=== PATIENT | female | born 1970 | race Hispanic/Latino ===

== ENCOUNTER → 2017-09-19 | Outpatient (CLI) | payer OTHER ==
--- NOTE | 2017-09-19 17:52 | Diagnostic Imaging Report ---
PROCEDURE:X-RAY ABDOMEN - KUB COMPARISON:None. INDICATIONS:KIDNEY STONE CHECK UP FINDINGS: No dilated loops of bowel or abnormal air-fluid levels patterns. Moderate stool is seen in the rectum. Visualized portions of the lung bases are clear. No definite calcifications are seen overlying the urinary system. There are multiple phleboliths in the left hemipelvis. Five non-rib bearing lumbar type vertebral bodies identified. CONCLUSION: No radiopaque renal or ureteral stones are identified. Dictated by: Rafy Godfrey M.D. on 09/19/2017 at 18:02 Electronically approved by: Rafy Godfrey M.D. on 09/19/2017 at 18:02
== END ==
LOC: RAD 16:30
PROVIDERS: ATTEND Urology
DX: N20.0 Calculus of kidney (principal)
CPT/HCPCS: 74018

== ENCOUNTER → 2018-01-19 | Outpatient (CLI) | payer OTHER ==
--- NOTE | 2018-01-19 17:37 | Diagnostic Imaging Report ---
PROCEDURE:X-RAY ABDOMEN - KUB COMPARISON:[facility], DX, ABDOMEN-1VIEW (KUB), 09/19/2017, 17:10. INDICATIONS:CALCULUS OF KIDNEY, CYST OF KIDNEY FINDINGS: Nonobstructive bowel gas pattern. No radiopaque densities project over the renal shadows or expected course of ureters or bladder. Stable left pelvic phleboliths. No acute bony abnormalities. Cholecystectomy clips. CONCLUSION: No radiopaque densities project over the genitourinary system. Forrest Rosas M.D. Dictated by: Forrest Rosas M.D. on 01/19/2018 at 17:39 Electronically approved by: Forrest Rosas M.D. on 01/19/2018 at 17:39
== END ==
LOC: RAD 16:26
PROVIDERS: ATTEND Urology
DX: N20.0 Calculus of kidney (principal); N28.1 Cyst of kidney, acquired
CPT/HCPCS: 74018; 81025

== ENCOUNTER 2018-07-18 11:23 | Emergency (ER) | payer OTHER ==
[~2018-07-18] VITALS: Ht 165.1 cm; Wt 105.7 kg
--- OUTSIDE RECORDS SUMMARY | 2018-07-18 11:26 | XMS REPORT | Continuity of Care Document ---
Author Author [facility] Interface Address Unknown Phone Unavailable Problems Problem Status Onset Date Classification Date Reported Comments Source Cough 04/29/2018 Diagnosis 04/29/2018 [facility] Acute sinusitis 04/29/2018 Diagnosis 04/29/2018 [facility] Body mass index 30+ - obesity 04/29/2018 Diagnosis 04/29/2018 [facility] Amygdalolith 04/02/2018 Diagnosis 04/29/2018 [facility] Acute pharyngitis 04/02/2018 Diagnosis 04/29/2018 [facility] Posterior rhinorrhea 04/02/2018 Diagnosis 04/29/2018 [facility] Urinary tract infectious disease 02/01/2018 Diagnosis 02/01/2018 [facility] Body Mass Index 30+ - Obesity 02/01/2018 Problem 04/29/2018 [facility] Urinary Tract Infectious Disease 02/01/2018 Problem 04/02/2018 [facility] Dysfunction of eustachian tube 12/20/2017 Diagnosis 12/20/2017 [facility] Acute suppurative otitis media without spontaneous rupture of ear drum 12/20/2017 Diagnosis 12/20/2017 [facility] Nausea 11/08/2017 Diagnosis 11/08/2017 [facility] Lower respiratory tract infection 11/08/2017 Diagnosis 11/08/2017 [facility] Acute otitis media 11/08/2017 Diagnosis 11/08/2017 [facility] Influenza-like symptoms 11/08/2017 Diagnosis 11/08/2017 [facility] Pharyngitis 11/08/2017 Diagnosis 11/08/2017 [facility] Feeling feverish 09/30/2017 Diagnosis 09/30/2017 [facility] Pain in throat 09/30/2017 Diagnosis 09/30/2017 [facility] Acute Sinusitis Problem 12/20/2017 [facility] Acute Maxillary Sinusitis Problem 12/20/2017 [facility] Influenzal Acute Upper Respiratory Infection Problem 12/20/2017 [facility] Medications Medication Details Route Status Patient Instructions Ordering Provider Order Date Source retapamulin 0.01 MG/MG Topical Ointment [Altabax] Altabax 1 % topical ointment Active [facility] Parlin Thyroid Parlin Thyroid Active [facility] thyroid (JAIL) 60 MG Oral Tablet [Parlin Thyroid] Parlin Thyroid 60 mg tablet Active [facility] thyroid (JAIL) 90 MG Oral Tablet [Parlin Thyroid] Parlin Thyroid 90 mg tablet Active [facility] Amoxicillin 875 MG / Clavulanate 125 MG Oral Tablet [Augmentin] Augmentin 875 mg-125 mg tablet Take 1 tablet every 12 hours by oral route as directed for 10 days. Active [facility] Brompheniramine Maleate 0.4 MG/ML / Dextromethorphan Hydrobromide 2 MG/ML / Pseudoephedrine Hydrochloride 6 MG/ML Oral Solution bujpptppsjrsmmb-cnmqxfxqxquzhzt-DL 2 mg-30 mg-10 mg/5 mL syrup Active [facility] compound drug compound drug Active [facility] Fluticasone propionate 0.05 MG/ACTUAT Metered Dose Nasal [place] fluticasone 50 mcg/actuation nasal spray,suspension Active [facility] levocetirizine dihydrochloride 5 MG Oral Tablet levocetirizine 5 mg tablet Active [facility] montelukast 10 MG Oral Tablet montelukast 10 mg tablet Active [facility] progesterone celestina 200mg crm progesterone celestina 200mg crm APPLY 1ML(4 CLICKS) TOPICALLY EACH NIGHT Active [facility] Salicylic Acid 285 MG/ML Topical Solution [Ultrasal] UltraSal- ER 28.5 % topical film-forming solution with applicator Active [facility] Acetaminophen 300 MG / Codeine Phosphate 30 MG Oral Tablet acetaminophen 300 mg-codeine 30 mg tablet Active [facility] Azithromycin 250 MG Oral Tablet azithromycin 250 mg tablet Take 2 tabs today, then 1 tab on day 2-5 Active [facility] gabapentin 300 MG Oral Capsule gabapentin 300 mg capsule Active [facility] Medrol (Johnny) 4 mg tablets in a dose pack Medrol (Johnny) 4 mg tablets in a dose pack Take 1 dose pk by oral route as directed. Active [facility] Omeprazole 40 MG Delayed Release Oral Capsule omeprazole 40 mg capsule,delayed release Active [facility] Ondansetron 4 MG Disintegrating Oral Tablet ondansetron 4 mg disintegrating tablet Take 1 tablet every 6-8 hours by oral route as needed for 3 days. Active [facility] 200 ACTUAT Albuterol 0.09 MG/ACTUAT Metered Dose Inhaler [ProAir] ProAir HFA 90 mcg/actuation aerosol inhaler INHALE TWO (2) PUFF(S) BY MOUTH EVERY 4 HOURS NEEDED. Active [facility] benzonatate 100 MG Oral Capsule [Tessalon Perles] Tessalon Perles 100 mg capsule Take 1 capsule 3 times a day by oral route. Active [facility] Eflornithine 139 MG/ML Topical Cream [Vaniqa] Vaniqa 13.9 % topical cream APPLY TO AFFECTED AREA TWICE A DAY. Active [facility] Brompheniramine Maleate 0.4 MG/ML / Dextromethorphan Hydrobromide 2 MG/ML / Pseudoephedrine Hydrochloride 6 MG/ML Oral Solution [Bromfed DM] Bromfed DM 2 mg-30 mg-10 mg/5 mL syrup Take 10 mL every 6 hours by oral route as needed for 5 days. Active [facility] heb allergy relief tab heb allergy relief tab TAKE ONE (1) TABLET BY MOUTH EVERY MORNING. SUBSTITUTED FOR PATRICE. Active [facility] progesterone celestina 200mg/ml crm progesterone celestina 200mg/ml crm APPLY 1ML(4 CLICKS) TOPICALLY EACH NIGHT Active [facility] Lidocaine Hydrochloride 20 MG/ML Mucous Membrane Topical Solution Lidocaine Viscous 2 % mucosal solution Take 15 mL every 4-6 hours by oral route as needed for 7 days. Active [facility] NITROFURANTOIN, MACROCRYSTALS 25 MG / Nitrofurantoin, Monohydrate 75 MG Oral Capsule [Macrobid] Macrobid 100 mg capsule Take 1 capsule every 12 hours by oral route as directed for 5 days. Active [facility] Allergies, Adverse Reactions, Alerts Substance Category Reaction Severity Reaction type Status Date Reported Comments Source Droperidol Allergy to substance 05/18/2012 [facility] Immunizations Immunization Date Given Site Status Last Updated Comments Source influenza, injectable, quadrivalent 04/15/2017 completed [facility] Tdap 12/14/2011 completed [facility] Results Order Name Results Value Reference Range Date Interpretation Comments Source RESULT negative 04/29/2018 [facility] SWAB LOCATION Left and Right tonsillar pillars 04/29/2018 [facility] Bacteria identified in Unspecified specimen by Respiratory culture Bacteria identified in Unspecified specimen by Respiratory culture final report 04/06/2018 [facility] Bacteria identified in Unspecified specimen by Respiratory culture Bacteria identified in Unspecified specimen by Respiratory culture rrf 04/06/2018 [facility] RESULT negative 04/02/2018 [facility] SWAB LOCATION Left and Right tonsillar pillars 04/02/2018 [facility] Urinalysis macro (dipstick) panel - Urine COLOR : Yellow 02/01/2018 [facility] Urinalysis macro (dipstick) panel - Urine CLARITY : Cloudy 02/01/2018 [facility] Urinalysis macro (dipstick) panel - Urine LEUKOCYTES : Small 02/01/2018 [facility] Urinalysis macro (dipstick) panel - Urine NITRITES : Negative 02/01/2018 [facility] Urinalysis macro (dipstick) panel - Urine UROBILINOGEN : Normal 02/01/2018 [facility] Urinalysis macro (dipstick) panel - Urine PROTEIN : Negative 02/01/2018 [facility] Urinalysis macro (dipstick) panel - Urine pH : 5.5 02/01/2018 [facility] Urinalysis macro (dipstick) panel - Urine BLOOD : Moderate 02/01/2018 [facility] Urinalysis macro (dipstick) panel - Urine SPECIFIC GRAVITY : 1.020 02/01/2018 [facility] Urinalysis macro (dipstick) panel - Urine KETONES : Negative 02/01/2018 [facility] Urinalysis macro (dipstick) panel - Urine BILIRUBIN : Negative 02/01/2018 [facility] Urinalysis macro (dipstick) panel - Urine GLUCOSE Negative 02/01/2018 [facility] Influenza A negative 11/08/2017 [facility] Influenza B negative 11/08/2017 [facility] RESULT negative 09/30/2017 [facility] SWAB LOCATION Left and Right tonsillar pillars 09/30/2017 [facility] Influenza A negative 09/30/2017 [facility] Influenza B negative 09/30/2017 [facility] Vital Signs Vital Sign Value Date Comments Source Diastolic (mm Hg) 80 04/29/2018 [facility] Height 65.5 04/29/2018 [facility] Systolic (mm Hg) 120 04/29/2018 [facility] Weight 227 04/29/2018 [facility] Diastolic (mm Hg) 70 04/02/2018 [facility] Height 65.5 04/02/2018 [facility] Systolic (mm Hg) 120 04/02/2018 [facility] Weight 231 04/02/2018 [facility] Diastolic (mm Hg) 75 02/01/2018 [facility] Height 65.5 02/01/2018 [facility] Systolic (mm Hg) 114 02/01/2018 [facility] Weight 235 02/01/2018 [facility] Diastolic (mm Hg) 82 12/19/2017 [facility] Height 65.5 12/19/2017 [facility] Systolic (mm Hg) 121 12/19/2017 [facility] Weight 233 12/19/2017 [facility] Diastolic (mm Hg) 80 11/08/2017 [facility] Height 65.5 11/08/2017 [facility] Systolic (mm Hg) 124 11/08/2017 [facility] Weight 233 11/08/2017 [facility] Diastolic (mm Hg) 82 09/30/2017 [facility] Height 65.5 09/30/2017 [facility] Systolic (mm Hg) 110 09/30/2017 [facility] Weight 234 09/30/2017 [facility] Encounters Location Location Details Encounter Type Encounter Number Reason For Visit Attending Provider ADM Date DC Date Status Source [place] - [facility] - [id number] ADDY DoeP-C: [address] [place] [address], Ph. [id number] Tom Agudelo 09/30/2017 [facility] [place] [facility] - [id number] WeberP-C: [address] [place] [address], Ph. [id number] Clarence Gill 11/08/2017 [facility] [place] [facility] - [id number] ADDY CuevasP-C: [address] [place] [address], Ph. [id number] Clarence Gill 12/19/2017 [facility] [place] [facility] - [id number] ADDY VieiraP-C: [address], [place] [address], Ph. [id number] Desire Alvaradoroy 02/01/2018 [facility] [place] [facility] - [id number] Олег Adler, PA-C: [address], [place] [address], Ph. [id number] Олег Adler 04/02/2018 [facility] [place] [facility] - [id number] Олег Adler PABennyC: [address], [place] [address], Ph. [id number] Олег Adler 04/02/2018 [facility] [place] [facility] - [id number] Олег Adler PA-C: [address], [place] [address], Ph. [id number] Олег Adler 04/29/2018 [facility] Procedures Procedure Code Date Perfomer Comments Source Delivery [id number] [facility] Cholecystectomy [facility]
--- OUTSIDE RECORDS SUMMARY | 2018-07-18 11:26 | XMS REPORT | Encounter Summary ---
Author Organization Unknown Address [address] [place] [address] Phone [phone] Reason for Visit Medical Complaint Instructions 1. Acute sinusitis sinusitis: care instructions Augmentin 875 mg-125 mg tablet 2. Feeling feverish rapid flu (A+B) 3. Pain in throat sore throat: care instructions rapid strep group A, throat Discussion Note: None recorded. Plan of Care Patient Instructions consider a trial of flonase and zyrtec if you havent already. follow up pcp Reminders Provider Appointments None recorded. Lab Rapid Flu (A+B) 09/30/2017 [facility] Rapid Strep Group a, Throat 09/30/2017 [facility] Referral None recorded. Procedures None recorded. Surgeries None recorded. Imaging None recorded. Medications Name Start Date Altabax 1 % topical ointment [place]uta Thyroid Caputa Thyroid 60 mg tablet [place] Thyroid 90 mg tablet Augmentin 875 mg-125 mg tablet Take 1 tablet every 12 hours by oral route after meals for 7 days. kaxbhxmkjrcwkat-rnafdqogqovxinh-RH 2 mg-30 mg-10 mg/5 mL syrup compound drug fluticasone 50 mcg/actuation nasal spray,suspension Inhale 1 spray every day by intranasal route at bedtime for 14 days. levocetirizine 5 mg tablet montelukast 10 mg tablet progesterone celestina 200mg crm APPLY 1ML(4 CLICKS) TOPICALLY EACH NIGHT UltraSal-ER 28.5 % topical film-forming solution with applicator Medications Administered None recorded. Vitals Height Weight BMI Blood Pressure 5 ft 5.5 in 234 lbs 38.3 kg/m2 110/82 mm[Hg] Lab Results Date Name Specimen Result Interpretation Description Value Range Status Address Rapid Strep Group a, Throat Result negative [facility]: [address] [place] [address] Swab Location Left and Right tonsillar pillars [facility]: [address] [place] [address] Rapid Flu (A+B) Influenza a negative [facility]: [address] [place] [address] Influenza B negative [facility]: [address] [place] [address] Allergies Code Code System Name Reaction Severity Status Onset 3648 RxNorm Droperidol Active Problems Name Status Onset Date Source Acute Sinusitis Active Encounter Acute Maxillary Sinusitis Active Encounter Influenzal Acute Upper Respiratory Infection Active Encounter Procedures Date Name Performed by Delivery Information not available Cholecystectomy Information not available Vaccine List Vaccine Type influenza, injectable, quadrivalent 04/15/2017 Social History Smoking Status Never Smoker Past Encounters 09/30/2017 Acute Sinusitis; Feeling Feverish; Pain in Throat Tom Agudelo [facility]: [address] [place] [address], Ph. History of Present Illness Qwjhm-Ocoykiaqzd-Wjozfvk Reported By: Patient HPI: Location: head/sinuses, throat. Quality: sore throat, nasal/sinus congestion. Duration: 7days. Severity: moderate. Onset/Timing: gradual. Context: no sick contacts, no foreign travel, non-smoker, allergies. Modifying factors: OTC medication. Associated Symptoms: no sputum production, no shortness of breath, no wheezing, no change in number of pillows needed to sleep at night, no sweats, no significant weight gain, no significant weight loss, no morning cough, no sore throat, no vomiting, no diarrhea, no rash, no nausea, no fever, no muscle aches, no headache Review of Systems:ROS as noted in the HPI Review of Systems Basic Reported By: Patient Physical Exam Adult Basic, Adult Female Complete Reported By: Patient Constitutional: General Appearance: obese. Level of Distress: NAD. Ambulation: ambulating normally Psychiatric: Mental Status: active and alert Eyes: Lids and Conjunctivae: non-injected, no discharge Urx-Bpge-Cpvgb-Throat: Ears: no lesions on external ear, no outer ear tenderness, EACs clear, TMs clear. Hearing: no hearing loss. Nose: no lesions on external nose, sinus tenderness, nasal discharge--purulent; congestion. Lips, Teeth, and Gums: no mouth or lip ulcers. Oropharynx: moist mucous membranes, no erythema, no exudates, tonsils not enlarged Neck: Neck: trachea midline. Lymph Nodes: no cervical LAD Lungs: Respiratory effort: no dyspnea, no tachypnea, no use of accessory muscles, no intercostal retractions. Auscultation: breath sounds normal Cardiovascular: Heart Auscultation: RRR, no murmurs
--- OUTSIDE RECORDS SUMMARY | 2018-07-18 11:26 | XMS REPORT | Encounter Summary ---
Author Organization Unknown Address [address] [place] [address] Phone [phone] Reason for Visit Medical Complaint Instructions 1. Lower respiratory tract infection ProAir HFA 90 mcg/actuation aerosol inhaler Medrol (Johnny) 4 mg tablets in a dose pack azithromycin 250 mg tablet 2. Acute otitis media earache: care instructions 3. Pharyngitis sore throat: care instructions rapid strep group A, throat culture, respiratory 4. Influenza-like symptoms fluticasone 50 mcg/actuation nasal spray,suspension Tessalon Perles 100 mg capsule viral infections: care instructions rapid flu (A+B) 5. Body mass index 30+ - obesity walking for exercise: care instructions increase exercise eating healthy foods: care instructions 6. Nausea nausea and vomiting: care instructions ondansetron 4 mg disintegrating tablet Discussion Note: None recorded. Plan of Care Patient Instructions When to seek urgent help See your doctor or seek Emergency Services immediately if you have a sore throat along with any of the following: Difficulty breathing Skin rash Drooling because you cannot swallow Swelling of the neck or tongue Stiff neck or difficulty opening the mouth Underlying chronic illness/medication that may impair your immune system Pain medication Cqnn-sii-rqmoogv pain relievers such as acetaminophen (Tylenol) or a nonsteroidal anti-inflammatory agent such as ibuprofen or naproxen (Motrin or Aleve) have been shown to provide fast and effective relief of sore throat pain. Oral steroids are not routinely used because steroids come with (potentially serious) side effects, the benefit in treating sore throat pain is limited, and byrt-nbw-psofvnw treatments help most patients. Oral rinses Salt-water gargles are an old standby for throat pain. It is not clear that salt water works to relieve pain, but it is unlikely to be harmful. Most recipes suggest 1/4 to 1/2 teaspoon (1.5 to 3.0 g) of salt per one cup (8 ounces or 250 mL) of warm water. Sprays Sprays containing topical anesthetics (eg, benzocaine, phenol) are available to treat sore throat. However, such sprays are no more effective than sucking on hard candy. Lozenges A variety of lozenges (cough drops) containing topical anesthetics are available to treat throat pain or relieve dryness. Lozenges may persist longer in the throat than sprays or gargles and, thus, may be more effective for symptom relief [2]. Other treatments Other treatments that may help with throat pain include sipping warm beverages (eg, honey or lemon tea, chicken soup), cold beverages, or eating cold or frozen desserts (eg, ice cream, popsicles). Alternative therapies Health food stores, vitamin outlets, and internet websites offer alternative treatments for relief of sore throat pain. These types of treatments are not recommend due to the risks of contamination with pesticides/herbicides, inaccurate labeling and dosing information, and a lack of studies showing that these treatments are safe and effective. Return to work/school If you have been diagnosed with strep throat, stay home from work or school until you have completed 24 hours of antibiotics. Within 24 hours of beginning antibiotic treatment, you will feel better and will be less contagious. If you have a sore throat (not diagnosed as strep), you may participate in your usual activities as soon as you feel well, though practical prevention measures such as good hand washing and cough etiquette should be observed. Most facilities such as schools and businesses have internal rules governing return to work after illness. Many require 24 hours of no fever without the use of fever reducers such as acetaminophen or ibuprofen. Check with your job or school to find out when you may return per their rules. Thank you for allowing me to participate in your healthcare! Reminders Provider Appointments None recorded. Lab Rapid Strep Group a, Throat 11/08/2017 [facility] Culture, Respiratory 11/08/2017 [facility] Rapid Flu (A+B) 11/08/2017 [facility] Referral None recorded. Procedures None recorded. Surgeries None recorded. Imaging None recorded. Medications Name Start Date acetaminophen 300 mg-codeine 30 mg tablet [place] Thyroid 90 mg tablet azithromycin 250 mg tablet Take 2 tabs today, then 1 tab on day 2-5 fluticasone 50 mcg/actuation nasal spray,suspension [place] 1 spray every day by intranasal route at bedtime for 14 days. gabapentin 300 mg capsule Medrol (Johnny) 4 mg tablets in a dose pack Take 1 dose pk by oral route as directed. omeprazole 40 mg capsule,delayed release ondansetron 4 mg disintegrating tablet Take 1 tablet every 6-8 hours by oral route as needed for 3 days. ProAir HFA 90 mcg/actuation aerosol inhaler Inhale 2 puffs every 4 hours by inhalation route as needed. progesterone celestina 200mg crm APPLY 1ML(4 CLICKS) TOPICALLY EACH NIGHT Tessalon Perles 100 mg capsule Take 1 capsule 3 times a day by oral route. Vaniqa 13.9 % topical cream APPLY TO AFFECTED AREA TWICE A DAY. Medications Administered None recorded. Vitals Height Weight BMI Blood Pressure 5 ft 5.5 in 233 lbs 38.2 kg/m2 124/80 mm[Hg] Lab Results Date Name Specimen Result Interpretation Description Value Range Status Address Rapid Flu (A+B) Influenza a negative [facility]: [address] [place] [address] Influenza B negative [facility]: [address] [place] [address] Allergies Code Code System Name Reaction Severity [...] History Smoking Status Never Smoker Past Encounters 11/08/2017 Lower Respiratory Tract Infection; Acute Otitis Media; Pharyngitis; Influenza- like Symptoms; Body Mass Index 30+ - Obesity; Nausea Clarence Gill [facility]: [address] [place] [address], Ph. History of Present Illness Throat-Oral Complaint Reported By: Patient HPI: Location: throat. Quality: sore throat, productive cough. Severity: mild, moderate. Onset/Timing: gradual. Context: no sick contacts, no foreign travel, non-smoker. Associated Symptoms: no fever, no body aches, no sputum production, no shortness of breath, no wheezing, no change in number of pillows needed to sleep at night, no sweats, no significant weight gain, no significant weight loss, no morning cough, no vomiting, no diarrhea, no rash, headache, fatigue, sore throat, nausea Review of Systems:ROS as noted in the HPI Review of Systems Basic Reported By: Patient Physical Exam Adult Basic, Adult Female Complete Reported By: Patient Constitutional: General Appearance: overweight. Level of Distress: NAD. Ambulation: ambulating normally Psychiatric: Mental Status: active and alert. Orientation: to time, to place, to person Eyes: Lids and Conjunctivae: non-injected, no discharge, no pallor. Pupils: PERRLA Nfi-Tslq-Mtezs-Throat: Ears: no lesions on external ear, no outer ear tenderness, EACs clear, TM erythematous, TM bulging. Hearing: hearing decreased. Nose: no lesions on external nose, nares patent, no septal deviation, nasal passages clear, no sinus tenderness, no nasal discharge; edematous turbinates bilaterally. Lips, Teeth, and Gums: no mouth or lip ulcers. Oropharynx: moist mucous membranes, no exudates, erythema, tonsils enlarged 3+ Neck: Neck: supple, trachea midline, no masses, FROM. Lymph Nodes: no supraclavicular LAD, anterior cervical LAD, posterior cervical LAD. Thyroid: no enlargement, non-tender, no nodules Lungs: Auscultation: inspiratory wheezing, expiratory wheezing Cardiovascular: Heart Auscultation: RRR, no murmurs Neurologic: Gait and Station: normal gait, normal station Skin: Inspection and palpation: no rash, no lesions Abdomen: Bowel Sounds: normal. Inspection and Palpation: soft, non-distended, no tenderness, no guarding, no rebound tenderness, no masses, no CVA tenderness
--- OUTSIDE RECORDS SUMMARY | 2018-07-18 11:26 | XMS REPORT | Encounter Summary ---
Author Organization Unknown Address [address] [place] [address] Phone [phone] Reason for Visit Left Medical Complaint Instructions 1. Acute suppurative otitis media without spontaneous rupture of ear drum Augmentin 875 mg-125 mg tablet ear infection (otitis media): care instructions 2. Dysfunction of eustachian tube eustachian tube problems: care instructions Discussion Note Pt is in no apparent acute distress; Verbalizes understanding of and agreement with all instructions with no questions at this time. Plan of Care Patient Instructions Take all medications as directed. Follow up with your PCP as needed. Seek additional medical care with new or worsening symptoms, or if symptoms do not resolve in 3-4 days. Thank you for allowing me to participate in your healthcare! Reminders Provider Appointments None recorded. Lab None recorded. Referral None recorded. Procedures None recorded. Surgeries None recorded. Imaging None recorded. Medications Name Start Date [place] Thyroid 90 mg tablet Augmentin 875 mg-125 mg tablet Take 1 tablet every 12 hours by oral route as directed for 7 days. fluticasone 50 mcg/actuation nasal spray,suspension USE ONE (1) SPRAY(S) IN EACH NOSTRIL AT BEDTIME FOR 14 DAYS. ProAir HFA 90 mcg/actuation aerosol inhaler INHALE TWO (2) PUFF(S) BY MOUTH EVERY 4 HOURS NEEDED. progesterone celestina 200mg/ml crm APPLY 1ML(4 CLICKS) TOPICALLY EACH NIGHT Vaniqa 13.9 % topical cream APPLY TO AFFECTED AREA TWICE A DAY. Medications Administered None recorded. Vitals Height Weight BMI Blood Pressure 5 ft 5.5 in 233 lbs 38.2 kg/m2 121/82 mm[Hg] Lab Results None recorded. Allergies Code Code System Name Reaction Severity Status Onset 0275 RxNorm Droperidol Active Problems Name Status Onset Date Source Acute Sinusitis Active Encounter Acute Maxillary Sinusitis Active Encounter Influenzal Acute Upper Respiratory Infection Active Encounter Procedures Date Name Performed by Delivery Information not available Cholecystectomy Information not available Vaccine List Vaccine Type influenza, injectable, quadrivalent 04/15/2017 Tdap 12/14/2011 Social History Smoking Status Never Smoker Past Encounters 12/19/2017 Acute Suppurative Otitis Media without Spontaneous Rupture of Ear Drum; Dysfunction of Eustachian Tube Clarence Gill, [facility]: [address] [place] [address], Ph. History of Present Illness Ear Complaint Reported By: Patient HPI: Location: left, pain inside ear. Quality: throbbing, dull, aching. Severity: progressively worse, continuous, severe, current pain 8/10. Duration: constant, ongoing. Onset/Timing: worse, still present, gradual. Context: no sick contacts, no recent swimming/water in ear, no exposure to second hand smoke, no head trauma, not grinding teeth, no recent air travel. Modifying factors: hurts to lie on, or pull on ear, hurts to chew. Associated Symptoms: no ringing in the ears, no fever, no chills, no dizziness, no vertigo, no headache, no muscle aches, hearing loss, discharge from the ears, nose/sinus problems, popping noise in the ears, earache Review of Systems:ROS as noted in the HPI Review of Systems Basic Reported By: Patient Physical Exam Adult Basic, Adult Female Complete Reported By: Patient Constitutional: General Appearance: healthy-appearing, well-nourished, well-developed. Level of Distress: NAD. Ambulation: ambulating normally Psychiatric: Mental Status: active and alert. Orientation: to time, to place, to person Eyes: Lids and Conjunctivae: non-injected, no discharge, no pallor. Pupils: PERRLA. Corneas: grossly intact. EOM: EOMI. Lens: clear. Sclerae: non-icteric. Vision: acuity grossly intact Hnl-Byon-Ggxdd-Throat: Ears: no lesions on external ear, no outer ear tenderness, EACs clear, TM erythematous, middle ear fluid. Hearing: no hearing loss. Nose: no lesions on external nose, nares patent, no septal deviation, nasal passages clear, no sinus tenderness, no nasal discharge. Lips, Teeth, and Gums: no mouth or lip ulcers. Oropharynx: moist mucous membranes, no erythema, no exudates, tonsils not enlarged Neck: Neck: supple, trachea midline, no masses, FROM. Lymph Nodes: no supraclavicular LAD, posterior cervical LAD Lungs: Respiratory effort: no dyspnea, no tachypnea, no use of accessory muscles, no intercostal retractions. Auscultation: breath sounds normal Cardiovascular: Heart Auscultation: RRR, no murmurs Neurologic: Gait and Station: normal gait, normal station Skin: Inspection and palpation: no rash, no lesions
--- OUTSIDE RECORDS SUMMARY | 2018-07-18 11:26 | XMS REPORT | Encounter Summary ---
Author Organization Unknown Address [address] [place] [address] Phone [phone] Care Team Providers Care Director Of Occupational Health Name Role Phone Minal Kelsey MD 3 [phone] Reason for Visit Medical Complaint Instructions 1. Urinary tract infectious disease urinary tract infection in women: care instructions Macrobid 100 mg capsule urinalysis, dipstick culture, urine 2. Body mass index 30+ - obesity body mass index: care instructions Discussion Note Pt is in NAD; Verbalizes understanding of all instructions with no questions at this time. Plan of Care Patient Instructions Recommend proper hydration and frequent urination. Avoid douching, Recommend urinating after sexual intercourse. Recommend wipe front to back after urinating. Avoid using tubs. Take medications as prescribed. Follow up with your PCP within 2-3 days if symptoms worsen as discussed. Recommend follow a low sodium/fat/carb diet and exercise 30-45 mins/d 3-4 days a week once symptoms resolve. Reminders Provider Appointments None recorded. Lab Urinalysis, Dipstick 02/01/2018 [facility] Culture, Urine 02/01/2018 [facility] Referral None recorded. Procedures None recorded. Surgeries None recorded. Imaging None recorded. Medications Name Start Date [place] Thyroid 90 mg tablet Macrobid 100 mg capsule Take 1 capsule every 12 hours by oral route as directed for 5 days. progesterone celestina 200mg/ml crm APPLY 1ML(4 CLICKS) TOPICALLY EACH NIGHT Vaniqa 13.9 % topical cream APPLY TO AFFECTED AREA TWICE A DAY. Medications Administered None recorded. Vitals Height Weight BMI Blood Pressure 5 ft 5.5 in 235 lbs 38.5 kg/m2 114/75 mm[Hg] Lab Results Date Name Specimen Result Interpretation Description Value Range Status Address Urinalysis, Dipstick Color : Yellow [facility]: [address] [place] [address] Clarity : Cloudy [facility]: [address] [place] [address] Leukocytes : Small [facility]: [address] [place] [address] Nitrites : Negative [facility]: [address] [place] [address] Urobilinogen : Normal [facility]: [facility] Protein : Negative [facility]: [address] [place] [address] Ph : 5.5 [facility]: [address] [place] [address] Blood : Moderate [facility]: [address] [place] [address] Specific Bartlett : 1.020 [facility]: [address] [place] [address] Ketones : Negative [facility]: [address] [place] [address] Bilirubin : Negative [facility]: [address] [place] [address] Glucose Negative [facility]: [address] [place] [address] Allergies Code Code System Name Reaction Severity Status Onset 3648 RxNorm Droperidol Active Problems Name Status Onset Date Source Body Mass Index 30+ - Obesity Active 02/01/2018 Urinary Tract Infectious Disease Active 02/01/2018 Procedures Date Name Performed by Delivery Information not available Cholecystectomy Information not available Vaccine List Vaccine Type influenza, injectable, quadrivalent 04/15/2017 Tdap 12/14/2011 Social History Smoking Status Never Smoker Past Encounters 02/01/2018 Urinary Tract Infectious Disease; Body Mass Index 30+ - Obesity Desire Melendez, [facility]: [address] [place] [address], Ph. History of Present Illness Qydusc-OWS-Gqfldjk Reported By: Patient HPI: Location: urethra. Quality: pain, pressure, burning. Severity: worsening, moderate. Duration: constant. Onset/Timing: worse, gradual. Context: no known exposure to STD, no prior history of STDs, sexually active, LMP5-28-18, heterosexual, vaginal intercourse, history of urine cultures/antibiotic treatment, wipes anterior to posterior, voids after intercourse. Modifying factors nothing makes it worse. Associated Symptoms: no fever/chills, no flank pain, no jaundice, no blood in the urine, no pain during urination, no vaginal discharge, no blisters on genitals, no rash on genitals, no muscle aches, no headache, urgency, urinary frequency; suprapubic pain Review of Systems Basic Reported By: Patient Constitutional: Constitutional: no fever Eyes: Eyes: no eye complaints Ntni-Hjoz-Qwhjm-Throat: Ears: no ear complaints. Nose: no nose/sinus problems. Mouth/Throat: no sore throat, no bleeding gums, no mouth complaints, no teeth problems Cardiovascular: Cardiovascular: no chest pain, no shortness of breath, no known heart murmur Respiratory: Respiratory: no cough, no wheezing, no shortness of breath Gastrointestinal: Gastrointestinal: no abdominal pain, no vomiting / diarrhea Genitourinary: Genitourinary: no discharge, urinary urgency; suprapubic pain and urinary frequency Musculoskeletal: Musculoskeletal: no muscle aches, no muscle weakness, no arthralgias/joint pain, no back pain Skin: Skin: no abnormal / changing mole, no jaundice, no rashes Neurologic: Neurologic: no loss of consciousness, no weakness, no numbness, no seizures, no dizziness, no headaches Physical Exam Adult Basic, Adult Female Complete Reported By: Patient Constitutional: General Appearance: obese. Level of Distress: NAD. Ambulation: ambulating normally Psychiatric: Mental Status: active and alert. Orientation: to time, to place, to person Eyes: Lids and Conjunctivae: non-injected, no pallor; no periorbital edema Neck: Neck: supple. Lymph Nodes: no cervical LAD Lungs: Respiratory effort: no dyspnea, no tachypnea, no use of accessory muscles, no intercostal retractions. Auscultation: breath sounds normal Cardiovascular: Heart Auscultation: RRR, no murmurs. Pulses including femoral / pedal: normal throughout Musculoskeletal:: Extremities: no edema Neurologic: Gait and Station: normal gait Abdomen: Bowel Sounds: normal. Inspection and Palpation: soft, non-distended, no guarding, no rebound tenderness, no masses, no CVA tenderness, suprapubic tenderness. Liver: non-tender, no hepatomegaly. Spleen: non-tender, no splenomegaly. Hernia: none palpable
--- OUTSIDE RECORDS SUMMARY | 2018-07-18 11:27 | XMS REPORT | Encounter Summary ---
Author Organization Unknown Address [address] [place] [address] Phone [phone] Care Team Providers Care [employer] Supervisor Name Role Phone Minal Kelsey MD 3 [phone] Reason for Visit Medical Complaint Instructions 1. Acute sinusitis sinusitis: care instructions Augmentin 875 mg-125 mg tablet 2. Cough cough: care instructions Bromfed DM 2 mg-30 mg-10 mg/5 mL syrup 3. Body mass index 30+ - obesity body mass index: care instructions Discussion Note Take an ntwc-alc-dryzcke pain medicine, such as acetaminophen (Tylenol), ibuprofen (Advil, Motrin), or naproxen (Aleve). Read and follow all instructions on the label. If the doctor prescribed antibiotics, take them as directed. Do not stop taking them just because you feel better. You need to take the full course of antibiotics. Be careful when taking gmzm-rxp-tjqtgte cold or flu medicines and Tylenol at the same time. Plan of Care Reminders Provider Appointments None recorded. Lab None recorded. Referral None recorded. Procedures None recorded. Surgeries None recorded. Imaging None recorded. Medications Name Start Date [place] Thyroid 90 mg tablet Augmentin 875 mg-125 mg tablet Take 1 tablet every 12 hours by oral route as directed for 10 days. Bromfed DM 2 mg-30 mg-10 mg/5 mL syrup Take 10 mL every 6 hours by oral route as needed for 5 days. heb allergy relief tab TAKE ONE (1) TABLET BY MOUTH EVERY MORNING. SUBSTITUTED FOR PATRICE. Medications Administered None recorded. Vitals Height Weight BMI Blood Pressure 5 ft 5.5 in 227 lbs 37.2 kg/m2 120/80 mm[Hg] Lab Results Date Name Specimen Result Interpretation Description Value Range Status Address 04/02/2018 Culture, Respiratory PHARYNGEAL Upper Respiratory Culture final report Final [facility]: [address] PHARYNGEAL Result 1 rrf Final [facility]: [address] Rapid Strep Group a, Throat Result negative [facility]: [address] [place] [address] Swab Location Left and Right tonsillar pillars [facility]: [address] [place] [address] Allergies Code Code System Name Reaction Severity Status Onset 3648 RxNorm Droperidol Active Problems Name Status Onset Date Source Body Mass Index 30+ - Obesity Active 02/01/2018 Procedures Date Name Performed by Delivery Information not available Cholecystectomy Information not available Vaccine List Vaccine Type influenza, injectable, quadrivalent 04/15/2017 Tdap 12/14/2011 Social History Smoking Status Never Smoker Past Encounters 04/29/2018 Acute Sinusitis; Cough; Body Mass Index 30+ - Obesity Олег Adler PA-C: [address] [place] [address], Ph. 04/02/2018 Posterior Rhinorrhea; Acute Pharyngitis; Amygdalolith Олег Adler PA-C: [address] [place] [address], Ph. History of Present Illness Throat-Oral Complaint Reported By: Patient HPI: Location: throat. Quality: sore throat, productive cough, congested. Severity: mild. Duration: 7 days. Onset/Timing: sudden. Context: no sick contacts, no foreign travel, non-smoker, allergies, asthma. Modifying factors: OTC medication. Associated Symptoms: no fever, no body aches, no sputum production, no shortness of breath, no wheezing, no change in number of pillows needed to sleep at night, no sweats, no significant weight gain, no significant weight loss, no morning cough, no vomiting, no diarrhea, no rash, no nausea, headache, chest pain, sore throat; clear to yellow sputum Review of Systems Basic Reported By: Patient Constitutional: Constitutional: no fever Eyes: Eyes: no eye complaints Dumz-Ktxo-Icpps-Throat: Ears: no ear complaints. Nose: nose/sinus problems. Mouth/Throat: no bleeding gums, no mouth complaints, no teeth problems, sore throat Cardiovascular: Cardiovascular: no chest pain, no shortness of breath, no known heart murmur Respiratory: Respiratory: no wheezing, no shortness of breath, cough Gastrointestinal: Gastrointestinal: no abdominal pain, no vomiting / diarrhea Genitourinary: Genitourinary: no urinary complaints, no discharge Musculoskeletal: Musculoskeletal: no muscle aches, no muscle weakness, no arthralgias/joint pain, no back pain Skin: Skin: no abnormal / changing mole, no jaundice, no rashes Neurologic: Neurologic: no loss of consciousness, no weakness, no numbness, no seizures, no dizziness, no headaches Physical Exam Adult Basic Reported By: Patient Constitutional: General Appearance: obese. Level of Distress: NAD. Ambulation: ambulating normally Psychiatric: Mental Status: active and alert. Orientation: to time, to place, to person Eyes: Lids and Conjunctivae: non-injected, no discharge, no pallor. Pupils: PERRLA. EOM: EOMI. Sclerae: non-icteric. Vision: acuity grossly intact Vju-Xikv-Dkuwl-Throat: Ears: no lesions on external ear, no outer ear tenderness, EACs clear, TMs clear. Hearing: no hearing loss. Nose: no lesions on external nose, nares patent, no septal deviation, nasal passages clear, sinus tenderness, post nasal drip. Lips, Teeth, and Gums: no mouth or lip ulcers, no bleeding gums, normal dentition. Oropharynx: moist mucous membranes, no erythema, no exudates, tonsils not enlarged; cobblestoning Neck: Neck: supple, trachea midline, no masses, FROM. Lymph Nodes: no cervical LAD, no supraclavicular LAD Lungs: Respiratory effort: no dyspnea, no tachypnea, no use of accessory muscles, no intercostal retractions. Auscultation: breath sounds normal Cardiovascular: Heart Auscultation: RRR, no murmurs
--- OUTSIDE RECORDS SUMMARY | 2018-07-18 11:27 | XMS REPORT | Encounter Summary ---
Author Organization Unknown Address [address] [place] [address] Phone [phone] Care Team Providers Care Fish [employer]ait Processing Supervisor Name Role Phone Minal Kelsey MD 3 [phone] Reason for Visit Medical Complaint Instructions 1. Posterior rhinorrhea 2. Acute pharyngitis rapid strep group A, throat sore throat: care instructions Lidocaine Viscous 2 % mucosal solution culture, respiratory 3. Amygdalolith Discussion Note discussed with patient to monitor for fever and any change in symptoms, return to clinic or follow up with pcp. continue tylenol or ibuprofen for discomfort. patient verbalized understanding. Plan of Care Reminders Provider Appointments None recorded. Lab Rapid Strep Group a, Throat 04/02/2018 [facility] Culture, Respiratory 04/02/2018 [facility] Referral None recorded. Procedures None recorded. Surgeries None recorded. Imaging None recorded. Medications Name Start Date [place] Thyroid 90 mg tablet fluticasone 50 mcg/actuation nasal spray,suspension heb allergy relief tab TAKE ONE (1) TABLET BY MOUTH EVERY MORNING. SUBSTITUTED FOR PATRICE. Lidocaine Viscous 2 % mucosal solution Take 15 mL every 4-6 hours by oral route as needed for 7 days. Vaniqa 13.9 % topical cream APPLY TO AFFECTED AREA TWICE A DAY. Medications Administered None recorded. Vitals Height Weight BMI Blood Pressure 5 ft 5.5 in 231 lbs 37.9 kg/m2 120/70 mm[Hg] Lab Results Date Name Specimen Result Interpretation Description Value Range Status Address Rapid Strep Group a, Throat Result negative [facility]: [address] [place] [address] Swab Location Left and Right tonsillar pillars [facility]: [address] [place] [address] Allergies Code Code System Name Reaction Severity [...] History Smoking Status Never Smoker Past Encounters 04/02/2018 Posterior Rhinorrhea; Acute Pharyngitis; Amygdalolith Олег Adler PA-C: [address] [place] [address], Ph. History of Present Illness Throat-Oral Complaint Reported By: Patient HPI: Location: throat. Quality: sore throat, congested, dry or hacking cough. Severity: mild, pain level 5/10. Duration: 3 days. Onset/Timing: sudden. Context: no sick contacts, no foreign travel, non-smoker, allergies. Modifying factors: OTC medication. Associated Symptoms: no fever, no sputum production, no shortness of breath, no wheezing, no change in number of pillows needed to sleep at night, no sweats, no significant weight gain, no significant weight loss, no morning cough, no vomiting, no diarrhea, no rash, no nausea, fever, headache, body aches, sore throat Review of Systems Basic Reported By: Patient Constitutional: Constitutional: fever Eyes: Eyes: no eye complaints Ttqz-Auur-Svnxb-Throat: Ears: ear pain. Nose: nose/sinus problems. Mouth/Throat: no bleeding gums, no mouth complaints, no teeth problems, sore throat Cardiovascular: Cardiovascular: no chest pain, no shortness of breath, no known heart murmur Respiratory: Respiratory: no wheezing, cough, shortness of breath Gastrointestinal: Gastrointestinal: no abdominal pain, no vomiting / diarrhea Genitourinary: Genitourinary: no urinary complaints, no discharge Musculoskeletal: Musculoskeletal: no muscle weakness, no arthralgias/joint pain, no back pain, muscle aches Skin: Skin: no abnormal / changing mole, no jaundice, no rashes Neurologic: Neurologic: no loss of consciousness, no weakness, no numbness, no seizures, no dizziness, no headaches, headache Physical Exam Adult Basic Reported By: Patient Constitutional: General Appearance: healthy-appearing, well-nourished, well-developed, overweight. Level of Distress: NAD. Ambulation: ambulating normally Psychiatric: Mental Status: active and alert. Orientation: to time, to place, to person Eyes: Lids and Conjunctivae: non-injected, no discharge, no pallor. Pupils: PERRLA. EOM: EOMI. Sclerae: non-icteric. Vision: acuity grossly intact Niy-Ezca-Unomi-Throat: Ears: no lesions on external ear, no outer ear tenderness, EACs clear, TMs clear. Hearing: no hearing loss. Nose: no lesions on external nose, nares patent, no septal deviation, nasal passages clear, no sinus tenderness, post nasal drip. Lips, Teeth, and Gums: no mouth or lip ulcers, no bleeding gums, normal dentition. Oropharynx: moist mucous membranes, no erythema, no exudates, tonsils not enlarged; tonsillar stone noted right post tonsil Neck: Neck: supple, trachea midline, no masses, FROM. Lymph Nodes: no cervical LAD, no supraclavicular LAD. Thyroid: non-tender Lungs: Respiratory effort: no dyspnea, no tachypnea, no use of accessory muscles, no intercostal retractions. Auscultation: breath sounds normal Cardiovascular: Heart Auscultation: RRR, no murmurs
--- OUTSIDE RECORDS SUMMARY | 2018-07-18 11:27 | XMS REPORT ---
Author [facility] Address Unknown Phone Unavailable Care Team Providers Care Computer Typesetter Name Role Phone SARY SANTOYO Unavailable Unavailable Problems This patient has no known problems. Allergies, Adverse Reactions, Alerts This patient has no known allergies or adverse reactions. Medications This patient has no known medications. Results Test Description Test Time Test Comments Text Results Atomic Results Result Comments ABDOMEN-1VIEW (KUB) 2018-01-19 17:39:00 [place] [address] Patient Name: FRANK HARTMANN MR #: [id number] : 1970 Age/Sex: 47/F Req #: [id number] [facility] Physician: Ordered by: SARY SANTOYO MD Report #: [id number] Location: [facility] Room/Bed: Procedure: [id number] DX/ABDOMEN-1VIEW (KUB) Exam Date: 01/19/18 Exam Time: 1703 REPORT STATUS: Signed PROCEDURE: X-RAY ABDOMEN - KUB COMPARISON: [facility], JONA ABDOMEN-1VIEW (KUB), 09/19/2017, 17:10. INDICATIONS: CALCULUS OF KIDNEY, CYST OF KIDNEY FINDINGS: Nonobstructive bowel gas pattern. No radiopaque densities project over the renal shadows or expected course of ureters or bladder. Stable left pelvic phleboliths. No acute bony abnormalities. Cholecystectomy clips. CONCLUSION: No radiopaque densities project over the genitourinary system. Melba Rosas M.D. Dictated by: Melba Rosas M.D. on 01/19/2018 at 17:39 Electronically approved by: Melba Rosas M.D. on 01/19/2018 at 17:39 Dictated By: MELBA ROSAS MD 38 Transcribed By: ROD on 01/19/181738 COPY TO: SARY SANTOYO MD ABDOMEN-1VIEW (KUB) [place] [address] Patient Name: FRANK HARTMANN MR #: [id number] : 1970 Age/Sex: 46/F Req #: [id number] Adm Physician: Ordered by: SARY SANTOYO MD Report #: [id number] Location: [facility] Room/Bed: Procedure: [id number] DX/ABDOMEN-1VIEW (KUB) Exam Date: 09/19/17 Exam Time: 1720 REPORT STATUS: Signed PROCEDURE: X-RAY ABDOMEN - KUB COMPARISON: None. INDICATIONS: KIDNEY STONE CHECK UP FINDINGS: No dilated loops of bowel or abnormal air-fluid levels patterns. Moderate stool is seen in the rectum. Visualized portions of the lung bases are clear. No definite calcifications are seen overlying the urinary system. There are multiple phleboliths in the left hemipelvis. Five non-rib bearing lumbar type vertebral bodies identified. CONCLUSION: No radiopaque renal or ureteral stones are identified. Dictated by: Inessa Godfrey M.D. on 09/19/2017 at 18:02 Electronically approved by: Inessa Godfrey M.D. on 09/19/2017 at 18:02 Dictated By: INESSA GODFREY MD 01 Transcribed By: ROD on 09/19/171801 COPY TO: SARY SANTOYO MD
[2018-07-18] MEDS ORDERED: KETOROLAC TROMETHAMINE 30 MG/ML VIAL IV STA (11:37)
[2018-07-18] MEDS ORDERED: ASPIRIN 81 MG CHEW TAB PO ONE (11:45)
[2018-07-18 12:25] LABS: BASOPHILS % 0.5 % (0.0-1.0); EOSINOPHILS % 0.5 % (0.0-6.0); HEMATOCRIT 39.3 % (34.2-44.1); HEMOGLOBIN 13.2 g/dL (12.0-16.0); LYMPHOCYTES # (AUTO) 1.6 (1.0-3.2); MEAN CORPUSCULAR HEMOGLOBIN 29.1 pg (28-32); MEAN CORPUSCULAR HGB CONC 33.6 g/dL (31-35); MEAN CORPUSCULAR VOLUME 86.8 fL (81-99); MONOCYTES # (AUTO) 0.5 (0.2-0.8); MONOCYTES % 8.1 % (4.4-11.3); NEUTROPHILS # (AUTO) 4.3 (2.1-6.9); PLATELET COUNT 207 x10e3/uL (140-360); RED BLOOD COUNT 4.53 x10e6/uL (3.6-5.1); RED CELL DISTRIBUTION WIDTH 13.3 % (11.7-14.4)
[2018-07-18 12:29] LABS: PREGNANCY TEST, URINE NEGATIVE (NEGATIVE)
[2018-07-18 12:38] LABS: INR 0.92; PARTIAL THROMBOPLASTIN TIME 29.4 seconds (23.8-35.5); PROTHROMBIN TIME 13.2 seconds (11.9-14.5)
[2018-07-18 12:42] LABS: CLARITY,URINE SL CLOUDY (CLEAR); COLOR,URINE YELLOW (YELLOW)
[2018-07-18 12:43] LABS: BILIRUBIN,URINE NEGATIVE (NEGATIVE); KETONES,URINE NEGATIVE (NEGATIVE); LEUKOCYTE ESTERASE ,URINE TRACE (NEGATIVE); NITRITE,URINE NEGATIVE (NEGATIVE); PROTEIN,URINE DIPSTICK NEGATIVE (NEGATIVE); URINE UROBILINOGEN 0.2 mg/dL (0.2 - 1)
[2018-07-18 12:58] LABS: EPITHELIAL CELLS,URINE FEW /LPF; RBC,URINE 0-5 /HPF (0-5); WBC,URINE (MAN) 0-5 /HPF (0-5)
[2018-07-18 13:02] LABS: THYROID STIMULATING HORMONE 5.181 uIU/mL (0.350-4.940)
--- NOTE | 2018-07-18 13:29 | Diagnostic Imaging Report ---
EXAMINATION: CHEST SINGLE (PORTABLE) COMPARISON: None FINDINGS: TUBES and LINES: None. LUNGS: Lungs are well inflated. Lungs are clear. There is no evidence of pneumonia or pulmonary edema. PLEURA: No pleural effusion or pneumothorax. HEART AND MEDIASTINUM: The cardiomediastinal silhouette is unremarkable. BONES AND SOFT TISSUES: No acute osseous lesion. Soft tissues are unremarkable. UPPER ABDOMEN: No free air under the diaphragm. IMPRESSION: No acute radiographic abnormality. Signed by: Dr. Hudson Wong MD on 07/18/2018 1:25 PM
[2018-07-18 14:11] LABS: ALANINE AMINOTRANSFERASE 17 IU/L (0-55); ALBUMIN 3.7 g/dL (3.5-5.0); ALBUMIN/GLOBULIN RATIO 1.2 (0.8-2.0); ALKALINE PHOSPHATASE 67 IU/L (40-150); ANION GAP 11.9 mmol/L (8-16); BLOOD UREA NITROGEN 8 mg/dL (7-26); BUN/CREATININE RATIO 11 (6-25); CALCIUM 9.1 mg/dL (8.4-10.2); CARBON DIOXIDE 25 mmol/L (22-29); CHLORIDE 106 mmol/L (98-107); CREATININE, SERUM 0.74 mg/dL (0.57-1.11); EST GLOMERULAR FILTRATION RATE > 60 ML/MIN (60-); GLUCOSE 88 mg/dL (74-118); POTASSIUM 3.9 mmol/L (3.5-5.1); SODIUM 139 mmol/L (136-145)
[2018-07-18 14:38] LABS: CREATINE KINASE 71 IU/L (29-168)
[2018-07-18 15:11] LABS: CREATINE KINASE 71 IU/L (29-168)
[2018-07-18 15:12] VITALS: BP 113/68
[2018-07-18 15:12] LABS: LIPASE 17 U/L (8-78)
== END 2018-07-18 15:21 | disposition home or self-care (01) ==
LOC: ER 11:23
DX: S29.011A Strain of muscle and tendon of front wall of thorax, initial encounter (principal); E03.9 Hypothyroidism, unspecified; Z88.8 Allergy status to other drugs, medicaments and biological substances
CPT/HCPCS: 36415; 71045; 80053; 81001; 81025; 82550; 82553; 83690; 84443; 84484; 85025; 85610; 85730; 87086; 93005; 99284; J1885